=== PATIENT | female | born 2000 | race African-American/Black ===

== ENCOUNTER 2019-05-31 17:20 | Emergency (ER) | payer OTHER ==
--- NOTE | 2019-05-31 17:24 | UC ---
Respiratory Complaint HPI - HPI Summary HPI Summary: Patient is a 18 year old female, who present today to the urgent care with possible cold symptoms for past 3 days. She reports random chest pain for "awhile". feeling weak. Frequent productive cough and sneezing. Having a difficult time breathing when she lays down at night. Waking up feeling drowsy for past 3 days. She thinks thinks she has a cold, work told her to come in and get checked. She reports subjective fevers but denies any sick contact. Had some sore throat yesterday that felt better with TheraFlu and Robitussin. Cough productive of phlegm. Has runny nose. Feels short of breath with coughing. She reports that she had had chest pains for a few years now and was evaluated in [place], had EKG at that time and it was inconclusive . Denies any abdominal pain , nausea or vomiting , diarrhea or constipation. Denies any urinary or vaginal symptoms - History of Current Complaint Stated Complaint: CHEST CONGESTION/ COUGH /CHEST TIGHTNESS/SOB Time Seen by Provider: 05/31/19 17:23 Hx Obtained From: Patient Hx Last Menstrual Period: May 12, 2019 ?: No - Allergies/Home Medications Allergies/Adverse Reactions: Allergies Allergy/AdvReac Type Severity Reaction Status Date / Time No Known Allergies Allergy Verified 05/31/19 17:37 Home Medications: Home Medications D-Methorphan/PE/Acetaminophen [Theraflu Severe Cold Mult 20-10-500 mg] 1 ramone PO DAILY PRN 05/31/19 [History Confirmed 05/31/19] PMH/Surg Hx/FS Hx/Imm Hx - Additional Past Medical History Additional PMH: Past Medical History : None Past Surgical History: No Past History of Procedure Family History : non contributory Social History : No non smoker, no drug use. Lives with family . Previously Healthy: Yes - Family History Known Family History: Positive: Non-Contributory Review of Systems All Other Systems Reviewed And Are Negative: Yes Constitutional: Positive: Fever, Fatigue Skin: Positive: Negative Eyes: Positive: Negative ENT: Positive: Sore Throat, Nasal Discharge Respiratory: Positive: Shortness Of Breath, Cough - Productive of sputum Cardiovascular: Positive: Chest Pain Gastrointestinal: Positive: Negative Genitourinary: Positive: Negative Motor: Positive: Negative Neurovascular: Positive: Negative Musculoskeletal: Positive: Negative Neurological: Positive: Negative Psychological: Positive: Negative Is Patient Immunocompromised?: No Physical Exam - Summary Physical Exam Summary: Physical Exam: Const: Appears well. No signs of apparent distress present. Alert and oriented x 3. Musculo: Walks with a normal gait. Head/Face: Atraumatic, normocephalic on inspection. Eyes: EOMI and PERRLA in both eyes. Conjunctivae clear. No discharge noted ENT: Hearing normal, TM normal appearing bilaterally, non bulging , non erythematous . No tenderness on palpation / manipulation of Tragus. No mastoid tenderness. No tenderness to palpation on maxillary and frontal sinus. No pharyngeal erythema or exudates . Uvula is midline. No cervical or submandibular lymphadenopathy noted. Respiratory: Respirations are unlabored. Lungs clear to auscultation bilaterally, no wheezing , rhonchi or rales noted . CVS: Regular rate and Rhythm, S1S2 normal , no murmurs identified. Extremities: Peripheral circulation is grossly normal. Pulses 2+ Abdomen : Soft non tender , nondistended , Bowel sounds present . No guarding , rebound tenderness or rigidity noted. Skin: No lesions or rash located on the upper extremities or on the lower extremities. Neuro: Cranial nerves II to XII intact, motor and sensory intact. DTR Intact bilaterally. Mood is normal. Affect is normal. Triage Information Reviewed: Yes Vital Signs Reviewed: Yes Respiratory Course/Dx - Course Course Of Treatment: During the visit today, we discussed the findings -suspect atypical pneumonia. I will treat it. She was given first dose of azithromycin and rest was prescribed to the pharmacy. She was given 1 dose of Tessalon for cough Patient expressed understanding . - Differential Dx/Diagnosis Provider Diagnosis: Atypical pneumonia Discharge ED - Sign-Out/Discharge Documenting (check all that apply): Patient Departure All imaging exams completed and their final reports reviewed: No Studies - Discharge Plan Condition: Stable Disposition: HOME Prescriptions: Azithromycin TAB* [Zithromax TAB (Z-RAMONE) 250 mg #6 tabs] 250 mg PO DAILY 4 Days #4 tab Benzonatate CAP* [Tessalon 100 MG CAP*] 100 mg PO TID PRN 10 Days #30 cap PRN Reason: Cough Patient Education Materials: Pneumonia (ED) Forms: *Work Release, *School Release Referrals: No Primary Care Phys,NOPCP [Primary Care Provider] - Additional Instructions: Please start taking the medication as prescribed to the pharmacy . Follow up with [facility] doctor in 2- 3 days. Patients blood pressure slightly high in Urgent care today( prehypertensive range) , plan follow up with PCP forrecheck Return to Urgent care / ER if symptoms get worse. - Billing Disposition and Condition Condition: STABLE Disposition: Home
[2019-05-31 17:36] VITALS: BP 125/71
[2019-05-31] MEDS ORDERED: Benzonatate CAP* 100 MG PO ONE (17:48)
[2019-05-31] MEDS ORDERED: Azithromycin TAB* 250 MG PO ONE (17:48)
== END 2019-05-31 17:57 | disposition home or self-care (01) ==
LOC: UCCORT 17:20
DX: J18.9 Pneumonia, unspecified organism (principal)
CPT/HCPCS: 99202; A9270-GY; G0463